=== PATIENT | male | born 1965 | race Caucasian/White ===

== ENCOUNTER → 2020-03-10 11:12 | Outpatient (CLI) | payer MEDICARE, SELFPAY ==
--- NOTE | ~2020-03-10 | DEXA_ITS ---
Bone Density Report Name: Karson Ross Age: 54 Sex: Male Ethnicity: White Date of : 1965 Indication: height loss; Referring Provider: Wale, Eddie Eugene Study: Bone densitometry was performed. Exam Date: March 10, 2020 Accession number: [id number] Bone Density: Region BMD T-score Z-score Classification AP Spine (L1-L4) 0.789 -2.7 -2.3 Osteoporosis Femoral Neck (Left) 0.721 -1.5 -0.7 Osteopenia Total Hip (Left) 0.765 -1.8 -1.4 Osteopenia Femoral Neck (Right) 0.681 -1.8 -1.0 Osteopenia Total Hip (Right) 0.736 -2.0 -1.6 Osteopenia Total Hip Mean 0.751 -1.9 -1.5 Osteopenia World Health Organization criteria for BMD impression classify patients as: Normal (T-score at or above -1.0), Osteopenia (T-score between -1.0 and -2.5), or Osteoporosis (T-score at or below -2.5). 10-year Fracture Risk: FRAX not reported because: Some T-score for Spine Total or Hip Total or Femoral Neck at or below -2.5 Clinical Information Provided by Patient: Smokes Patient maximum height was 72 No regular weight bearing exercise Drinks caffeinated beverages Impression: The patient has osteoporosis, based on the Total Spine T-score. The patient has risk factors, including: smoking. Discussion: HIGH RISK OF FRACTURE. BONE DENSITY IS UNDESIRABLY LOW AT ONE OR MORE SKELETAL SITES, CONSISTENT WITH OSTEOPOROSIS. ALSO, BONE DENSITY IS LOWER THAN EXPECTED FOR AGE, SEX AND RACE AT ONE OR MORE SKELETAL SITES; RECOMMEND A DILIGENT SEARCH FOR SECONDARY CAUSES OF BONE LOSS. This patient's lowest T-score meets the World Health Organization's (WHO) criteria for osteoporosis at one or more sites (T-score -2.5 or below). In untreated patients, the risk of osteoporotic fracture increases approximately two-fold for each 1.0 SD decrease in T-score. Low bone density is not the only risk factor for fracture; also consider factors such as patient's age, frailty or poor health, risk of falling, risk of injury, previous osteoporotic fracture, family history of osteoporosis, cigarette smoking, low body weight, etc. Not everyone with low bone mineral density has osteoporosis; osteomalacia and other metabolic bone disorders should also be considered. Patients who have osteoporosis should be evaluated for specific diseases and conditions (secondary causes) that may cause or contribute to bone loss. The National Osteoporosis Foundation (NOF) recommends pharmacologic intervention for men with BMD at this level (a T-score of -2.5 or below). Also, this patient's bone mineral density is below the range considered normal for healthy age-, sex and race-matched controls at least one site (Z-score -2.0 or below). This warrants careful evaluation for diseases and conditions that may contribute to accelerated bone loss. The patient should follow a healthful lifestyle (goo
== END ==
PROVIDERS: Visit Provider Internal Medicine Infectious Disease
DX: M85.88 Other specified disorders of bone density and structure, other site (principal); M81.0 Age-related osteoporosis without current pathological fracture; M85.852 Other specified disorders of bone density and structure, left thigh; M85.851 Other specified disorders of bone density and structure, right thigh
CPT/HCPCS: 77080

== ENCOUNTER 2020-05-02 12:34 | Outpatient (CLI) | payer MEDICARE, SELFPAY ==
--- NOTE | ~2020-05-02 | PE_ITS ---
EXAMINATION: PET skull to mid thigh DATE: 05/02/2020 14:24 INDICATION: Malignant neoplasm of the pancreas TECHNIQUE: 10 mCi of 18-fluorodeoxyglucose (18-FDG) was administered i.v. Low dose computed tomograph y (CT) images were acquired from the base of the brain to the proximal thighs for attenuation correct ion and anatomic localization. Positron emission tomography (PET) images were acquired after injectio n. Images including fused PET/CT images were reconstructed in axial, coronal, and sagittal planes. Au tomatic exposure control is employed as a dose reduction technique. COMPARISON: None FINDINGS: Head/neck: Small mucous retention cyst right maxillary sinus. No abnormality of the neck soft tissues. Paraphary ngeal spaces are symmetric. No significant cervical lymphadenopathy. No hypermetabolic activity in th e neck soft tissues. Chest: There is emphysema. There is a 1.5 cm left lower lobe mass with increased FDG uptake. Maximum SUV is 3.75. There are areas of increased FDG uptake in the esophagus, mid and distal without discrete mass. There are multiple areas of mild FDG uptake in the thoracic and lumbar spine without associated oste olytic or blastic lesion. There are sclerotic lesion of C6 and T12, most likely metastatic disease. Abdomen/pelvis/proximal thighs: There is extensive increased FDG uptake surrounding the liver margin and within multiple subtle liver masses, consistent with metastatic disease. There is a pancreatic mass measuring approximately 6.6 c m with increased peripheral FDG uptake. Maximum SUV is 6.58. This likely represents patient's known p rimary malignancy. There is anterior peritoneal stranding and nodularity with soft tissue FDG uptake, consistent with peritoneal carcinomatosis. There is a 4.6 cm peritoneal mass in the left upper abdom en, perfusion slice 446/781 with maximum SUV of 5.6. IMPRESSION: 1. Large centrally necrotic pancreatic mass measuring 6.6 cm with abnormal FDG uptake, consistent wit h patient's known primary malignancy. There is evidence for metastases with peritoneal carcinomatosis as well as metastatic disease to the liver, left lower lobe, spine and possibly in the esophagus. Reviewed, dictated and finalized at location B. IMPRESSION: 1. Large centrally necrotic pancreatic mass measuring 6.6 cm with abnormal FDG uptake, consistent with patient's known primary malignancy. There is evidence f or metastases with peritoneal carcinomatosis as well as metastatic disease to t he liver, left lower lobe, spine and possibly in the esophagus.
[2020-05-02 12:56] LABS: Glucose Point of Care 85 (65-105)
== END 2020-05-02 12:35 | disposition home or self-care (01) ==
PROVIDERS: PCP Internal Medicine Infectious Disease; Visit Provider Internal Medicine Medical Oncology
DX: C25.9 Malignant neoplasm of pancreas, unspecified (principal)
CPT/HCPCS: 78815; A9552